=== PATIENT | male | born 1955 | race Caucasian/White ===

== ENCOUNTER 2016-12-01 18:50 | Emergency (ER) | payer BC ==
[2016-12-01 19:38] LABS: BASOPHILS 2.3 % (0-2); EOSINOPHILS 0 % (0-7); HEMATOCRIT 50.4 % (42.0-54.0); HEMOGLOBIN 17.8 g/dL (13.5-17.5); IMMATURE GRANULOCYTES 0.3 % (0-5); LYMPHOCYTES 16.4 % (15-50); MCH 33.9 pg (26.0-34.0); MCHC 35.3 g/dL (31.0-37.0); MEAN PLATELET VOLUME 10.5 fL (7.4-10.4); MONOCYTES 9.6 % (2-11); NEUTROPHILS 71.4 % (40-80); PLATELET COUNT 80 10x3/uL (130-400); RBC 5.25 10x6/uL (4.20-6.10); RDW 12.9 % (11.5-14.5); WBC 3.5 10x3/uL (4.8-10.8)
[2016-12-01 19:46] LABS: APPEARANCE CLEAR (CLEAR); BILIRUBIN NEGATIVE (NEGATIVE); COLOR YELLOW (YELLOW); GLUCOSE NEGATIVE (NEGATIVE); KETONE SMALL mg/dL (NEGATIVE); LEUKOCYTE ESTERASE TRACE (NEGATIVE); NITRITE NEGATIVE (NEGATIVE); PROTEIN 1+ mg/dL (NEGATIVE); SPECIFIC GRAVITY 1.015 (1.005-1.020); UROBILINOGEN NORMAL (NORMAL)
[2016-12-01 19:55] LABS: ALBUMIN 3.2 g/dL (3.4-5.0); BILIRUBIN - TOTAL 0.68 mg/dL (0.2-1.3); CALCIUM 7.8 mg/dL (8.5-10.1); CARBON DIOXIDE 25.7 mmol/L (21.0-32.0); CREATININE - SERUM 1.1 mg/dL (0.6-1.3); POTASSIUM - SERUM 3.7 mmol/L (3.5-5.1); PROTEIN - SERUM 6.8 g/dL (6.4-8.2)
[2016-12-01 19:55] LABS: BACTERIA FEW /hpf (NONE SEEN); EPITHELIAL CELLS 0-5 /hpf (0-5); MUCUS >1+ /lpf (NONE SEEN); RED CELLS - URINE 0-5 /hpf (0-5); WHITE CELLS - URINE 0-5 /hpf (0-5)
[2016-12-01 20:06] LABS: PLATELET ESTIMATE DECREASED
== END 2016-12-01 21:42 | disposition home or self-care (01) ==
LOC: D.ER 18:50
PROVIDERS: Physician Assistant Medical
DX: R53.1 Weakness (principal); A93.8 Other specified arthropod-borne viral fevers; I10 Essential (primary) hypertension; F32.9 Major depressive disorder, single episode, unspecified

== ENCOUNTER → 2019-01-09 09:42 | Outpatient (CLI) | payer BC | END | disposition home or self-care (01) | LOC: D.HCCARDIO 09:42 | PROVIDERS: ATTEND Internal Medicine Cardiovascular Disease | DX: I20.9 Angina pectoris, unspecified (principal) ==

== ENCOUNTER 2019-01-22 11:06 | Outpatient (CLI) | payer BC ==
[~2019-01-22] VITALS: Ht 177.8 cm; Wt 136.4 kg
--- NOTE | ~2019-01-22 | HEMODYNAMI ---
PATIENT:RACHEL LAKHANI MEDICAL RECORD: [id number] : 59 LOCATION:[facility] ADMISSION DATE: 01/22/19 Generatedon:01/22/201915:07 Patient name: RACHEL LAKHANI Patient #: [id number] SSN: [id number] : 1955 Date of study: 01/22/2019 Page: Of Hemodynamic Procedure Report Patient Data Patient Demographics Procedure consent was obtained First Name: RACHEL Gender: Male Last Name: KAR : 1955 Middle Initial: R Age: 63 year(s) Patient #: [id number] Race: SSN: [id number] Additional ID: [id number] Contact details [facility] State: [place] City: [place] Zip code: [address] Past Medical History Performed procedures and imaging results Date Procedure Procedure Results Comments Echocardiography Stress testing Positive->Intermediate with SPECT MPI risk Allergies Allergen Reaction Date Comments Reported Other allergy 01/22/2019 [facility] Admission Admission Data Admission Date: 01/22/2019 Admission Time: 11:06 Height (in.): 70 BSA: 2.48 (m2) Height (cm.): 177.8 BMI: 43.02 (kg/m2) Weight (lbs.): 299.83 Weight (kg.): 136 Medications upon Admission Medications Dosage Times Administered Last Remarks per Delivery Day Date and Time Aspirin 81 mg 1 (any) GABRIELLA 20 mg Inhibitor (any) ARB (any) 12.5 mg Lab Results Lab Result Date: 01/22/2019 Lab Result Time: 0:00 Biochemistry Name Units Result Min Max BUN mg/dl 20 --(----)*- 7 18 Creatinine mg/dl 1.1 --(--*-)-- 0.6 1.3 eGFR ml/min 72 *-(----)-- 90 120 NONAFRICAN CBC Name Units Result Min Max Hematocrit % 51.1 --(---*)-- 42 54 Hemoglobin g/dl 17.8 --(----)*- 13.5 17.5 Procedure Procedure Types Cath Procedure Diagnostic Procedure [facility] w/Coronaries Sedation Charges Moderate Sedation up to 15 minutes Procedure Description Procedure Date Procedure Date: 01/22/2019 Procedure Start Time: 14:37 Procedure End Time: 15:04 Procedure Staff Name Function Ray Carter MD Performing Physician Jeniffer Rosales RT Monitor Dwain Forrest RT Scrub Tianna Licea RT Scrub Milton Barkley RN Nurse Davy Rangel RN Nurse Indication Angina Shortness of breath Procedure Data Cath Procedure Fluoroscopy Diagnostic fluoroscopy Total fluoroscopy Time: 10 time: 10 min min Diagnostic fluoroscopy Total fluoroscopy dose: dose: 1346 mGy 1346 mGy Contrast Material Contrast Material Type Amount (ml) Isovue 300 136 Entry Location Entry Primary Successful Side Size Upsize Upsize Entry Closure Schroeder ccessful Closure Location (Fr) 1 (Fr) 2 (Fr) Remarks Device Remarks Radial Right 5 Fr Mechanical artery Compression Estimated blood loss: 10 ml Diagnostic catheters Device Type Used For End Catheter Placement DIAGNOSTIC Niranjan 110cm Procedure 5Fr catheter ([id number]) DIAGNOSTIC AR MOD 5Fr Procedure Catheter ([id number]) DIAGNOSTIC Bowie 110cm 5 Procedure Fr catheter (028187) DIAGNOSTIC AL1 5Fr Procedure catheter ([id number]) DIAGNOSTIC Pigtail 5Fr Procedure catheter ([id number]) Procedure Complications No complications Procedure Medications Medication Administration Route Dosage 0.9% NaCl I.V. 100 ml/hr Oxygen etCO2 Nasal cannula 2 l/min Heparin Flush Bag added to field 2 bags (1000units/500ml NS) Lidocaine 2% added to field 20 Radial Cocktail added to field 1 syringe (Verapamil 2mg/Nitro 400mcg/Heparin 1500units) Versed I.V. 2 mg Fentanyl I.V. 100 mcg Versed I.V. 1 mg Radial Cocktail I.A. 1 syringe (Verapamil 2mg/Nitro 400mcg/Heparin 1500units) Hemodynamics Rest BSA: 2.48 (m2) HGB: 17.8 (g/dl) O2 Consumption: Estimated: 277.29 (ml/min) O2 Co nsumption indexed: Estimated:111.81 (ml/min/m) Heart Rate: 55 (bpm) Pressure Samples Time Site Value (mmHg) Purpose Heart Use Rate(bpm) 14:45 LV 146/1,18 Snapshot 61 Gradients Valve Time Site Site Mean SEP/DFP Peak To Heart Use 1 2 (mmHg) (sec/min) Peak Rate (mmHg) (bpm) Aortic 14:45 LV AO 60 Snapshots Pre Cath Intra NCS Post Cath Vital Signs Time Heart Resp SPO2 etCO2 NIBP Rhythm Pain Sedation Rate (ipm) (%) (mmHg) (mmHg) Status Level (bpm) 14:25:28 54 19 93 44.1 125/76(91) NSR 0 (11) 10(A) , No pain 14:29:42 54 13 93 38.2 119/63(83) NSR 0 (11) 10(A) , No pain 14:33:52 56 11 92 14.9 120/71(87) NSR 0 (11) 10(A) , No pain 14:38:08 57 15 93 48.6 118/64(84) NSR 0 (11) 10(A) , No pain 14:42:24 58 13 92 21.7 118/66(85) NSR 0 (11) 10(A) , No pain 14:46:40 57 13 94 41.1 116/63(80) NSR 0 (11) 9(A) , No pain 14:50:56 66 15 94 38.1 113/63(87) NSR 0 (11) 9(A) , No pain 14:55:12 58 16 92 45.6 119/61(81) NSR 0 (11) 10(A) , No pain 14:59:26 58 16 92 38.1 115/67(85) NSR 0 (11) 10(A) , No pain 15:03:42 54 19 93 39.7 114/65(84) NSR 0 (11) 10(A) , No pain Medications Time Medication Route Dose Verified Delivered Reason Notes Effectiveness by by 14:25:15 0.9% NaCl I.V. 100 Davy Davy Per ml/hr Claire Rangel physician RN RN 14:25:24 Oxygen etCO2 2 l/min Davy Davy for low 02 Nasal Claire Rangel sats cannula RN RN 14:25:34 Heparin Flush added 2 bags Davy Davy used for Bag to Claire Rangel procedure (1000units/500ml field RN RN NS) 14:25:45 Lidocaine 2% added 20ml Davy Davy for local to vial Lorigan Claire anesthetic field RN RN 14:26:00 Radial Cocktail added 1 Davy Davy used for (Verapamil to syringe Lorigan Lorigan procedure 2mg/Nitro RN RN 400mcg/Heparin 1500units) 14:34:07 Versed I.V. 2 mg Davy Davy for sedation Claire Rangel RN RN 14:34:15 Fentanyl I.V. 100 mcg Davy Davy for sedation Claire Rangel RN RN 14:38:25 Versed I.V. 1 mg Davy Davy for sedation Claire Rangel RN RN 14:42:25 Radial Cocktail I.A. 1 Davy Ray for (Verapamil syringe Claire Carter MD vasodilation 2mg/Nitro RN 400mcg/Heparin 1500units) Procedure Log Time Note 14:01:44 Time tracking: Regular hours (M-F 7:00 - 5:00) 14:01:48 Plan of Care:Hemodynamics will remain stable., Cardiac rhythm will remain stable., Comfort level will be maintained., Respiratory function will remain adequate., Patient/ family verbilizes understanding of procedure., Procedure tolerated without complication., Recovers from procedure without complications.. 14:01:51 Procedure Status Elective Heart Cath (OP). 14:01:53 Signed procedure consent form obtained from patient. 14:01:57 Davy Rangel RN sent for patient. Start room use. 14:12:39 Diagnostic Cath Status : Elective 14:12:40 PCI Cath Status : Elective 14:12:48 Indication : Angina 14:13:01 Indication : Shortness of breath 14:14:01 Patient Weight : 299.83 lbs 14:14:14 Patient Height : 70 inches 14:24:22 Patient received from Pre/Post Procedure Room to CCL 1 Alert and oriented. Tansferred to table in Supine position. 14:24:23 Warm blankets applied, and richard hugger turned on for patient comfort. 14:24:24 Correct patient and procedure confirmed by team. 14:24:25 ECG and BP/O2 sat monitors applied to patient. 14:24:26 Vital chart was started 14:24:27 Baseline sample Acquired. 14:24:30 Rhythm: sinus bradycardia 14:24:33 Full Disclosure recording started 14:24:41 H&P Date Dictated: 01/15/2019 Within 30 days and on chart., H&P Addendum completed by physician on day of procedure. (MUST COMPLETE FOR ALL OUTPATIENTS). 14:24:42 Pre-procedure instructions explained to patient. 14::43 Pre-procedure instructions explained to patient. 14:24:44 Family in patients room. 14:24:45 Patient NPO since Midnight. 14:24:57 Patient allergic to Other allergySUDAFEDS 14:25:00 Is patient on blood thinner?No 14:25:03 Patient diabetic? No. 14:25:06 Previous problem with sedation/anesthesia? No ? 14:25:07 Snore? Yes 14:25:08 Sleep apnea? Yes 14:25:09 Deviated septum? No 14:25:10 Opens mouth fully? Yes 14:25:12 Sticks out tongue? Yes 14:25:15 0.9% NaCl 100 ml/hr I.V. was administered by Davy Rangel RN; Per physician; 14:25:20 Airway obstruction? No ? 14:25:24 Oxygen 2 l/min etCO2 Nasal cannula was administered by Davy Rangel RN; for low 02 sats; 14:25:24 Dentures? No ? 14:25:32 Modified Shivam's test Ulnar < 7 seconds 14:25:34 Heparin Flush Bag (1000units/500ml NS) 2 bags added to field was administered by Davy Rangel RN; used for procedure; 14:25:34 Patient pain scale 0/10 ?. 14:25:41 IV patent on arrival in left hand with 0.9% NaCl at [facility]. 14:25:45 Lidocaine 2% 20ml vial added to field was administered by Davy Rangel RN; for local anesthetic; 14:26:00 Radial Cocktail (Verapamil 2mg/Nitro 400mcg/Heparin 1500units) 1 syringe added to field was administered by Davy Rangel RN; used for procedure; 14::51 Lab Result : BUN 20 mg/dl 14::51 Lab Result : eGFR NONAFRICAN 72 ml/min 14::51 Lab Result : Creatinine 1.1 mg/dl 14::51 Lab Result : Hemoglobin 17.8 g/dl 14::51 Lab Result : Hematocrit 51.1 % 14::54 Lab results completed and on chart. 14:28:58 Right Radial & Right Groin area was prepped with chlora-prep and draped in sterile fashion 14::59 Alarms reviewed by R. N. 14::59 Sharps counted by scrub and verified by R.N. 14:29:03 Use device set Radial Dx or PCI 14:29:04 ACIST Syringe (28246) opened to sterile field. 14:29:06 Bag Decanter (2002S) opened to sterile field. 14:29:07 ACIST Hand Control (23581) opened to sterile field. 14:29:07 ACIST Manifold (90212) opened to sterile field. 14:29:08 Tegaderm 4 x 4 (1626W) opened to sterile field. 14:29:10 Medline Cath Pack ([id number]) opened to sterile field. 14:29:11 MBrace Wrist Support ([id number]) opened to sterile field. 14:29:14 EMERALD Guide Wire (502-374) opened to sterile field. 14:29:15 SHEATH 6FR RAIN (4429448) opened to sterile field. 14:29:16 NEEDLE Cook 21G 4cm Radial ([id number]) opened to sterile field. 14:33:19 --------ALL STOP TIME OUT------ 14:33:20 Final Timeout: patient, procedure, and site verified with staff and physician. All members of the team are in agreement. 14:33:22 Right Radial & Right Groin site verified by team. 14:33:25 Fire Safety Assessment: A--An alcohol-based skin anteseptic being used preoperatively., C--Open oxygen or nitrous oxide is being used., D--An ESU, laser, or fiber-optic light is being used. 14:33:28 Physical assessment completed. ASA score P 2 - A patient with mild systemic disease as per Ray Carter MD. 14:33:43 2) 60-89 Mildly reduced kidney function, and other findings (as for stage 1) point to kidney disease. 14:33:57 Maximum allowable contrast dose (3.7 X eGFR X 0.75)216 ml. 14:34:01 Sedation plan: IV Moderate Sedation Medication:Versed, Fentanyl 14:34:07 Versed 2 mg I.V. was administered by Davy Lorigan RN; for sedation; 14:34:15 Fentanyl 100 mcg I.V. was administered by Davy Rangel RN; for sedation; 14:37:30 Procedure started. 14:37:39 Local anesthetic to right radial artery with Lidocaine 2% by Ray Carter MD.INITIAL ACCESS ONLY 14:38:25 Versed 1 mg I.V. was administered by Davy Rangel RN; for sedation; 14:42:08 A 5 Fr sheath was inserted into the Right Radial artery 14:42:25 Radial Cocktail (Verapamil 2mg/Nitro 400mcg/Heparin 1500units) 1 syringe I.A. was administered by Ray Carter MD; for vasodilation; 14:43:27 A DIAGNOSTIC Niranjan 110cm 5Fr catheter (311284) was advanced over the wire and used for Procedure. 14:45:05 LV gram done using GRACIA 14:45:07 Injector settings: Ml/sec: 7, Volume: 15, 14:45:20 LV hemodynamics recorded. 14:45:31 EF : 60 % 14:47:03 LCA angiography performed. 14:48:43 Catheter exchanged over wire. 14:49:02 UNABLE TO ENGAGE RCA 14:49:37 A DIAGNOSTIC AR MOD 5Fr Catheter ([id number]) was advanced over the wire and used for Procedure. 14:51:26 Catheter exchanged over wire. 14:51:38 UNABLE TO ENGAGE RCA 14:52:06 A DIAGNOSTIC Bowie 110cm 5 Fr catheter (427142) was advanced over the wire and used for Procedure. 14:54:22 Catheter exchanged over wire. 14:54:31 UNABLE TO ENGAGE RCA 14:55:09 A DIAGNOSTIC AL1 5Fr catheter ([id number]) was advanced over the wire and used for Procedure. 14:56:50 Catheter exchanged over wire. 14:57:08 UNABLE TO ENGAGE RCA 14:58:28 A DIAGNOSTIC Pigtail 5Fr catheter ([id number]) was advanced over the wire and used for Procedure. 15:00:15 Aortic Root visualized 15:00:29 ACCDominant side:Left 15:00:45 Catheter removed. 15:00:48 TR BAND Large ([id number]) opened to sterile field. 15:00:54 Procedure ended.(Physican Out) 15:01:26 Sheath removed intact; hemostasis achieved with Mechanical Compression to the Right Radial artery. 15:01:30 Fluoroscopy time 10.00 minutes. 15:01:35 Fluoroscopy dose: 1346 mGy 15:01:35 Flurop Dose total: 1346 15:01:51 Dose Area Product 00200 mGy/cm. 15:01:55 Contrast amount:Isovue 300 136ml. 15:01:58 Maximum allowable dose exceeded? No. 15:01:59 Sharps counted by scrub and verified by R.N. 15:02:05 TR band inflated with 10cc of air. 15:02:11 Post-procedure physical assessment completed. ASA score P 2 - A patient with mild systemic disease as per Ray Carter MD. 15:02:14 Post procedure rhythm: sinus bradycardia 15:02:17 Estimated blood loss: 10 ml 15:02:28 Post procedure instruction explained to patient.Patient verbalizes understanding. 15:02:29 Patient needs reinforcement of post procedure teaching. 15:03:21 Procedure type changed to Cath procedure, Diagnostic procedure, LHC, LHC w/Coronaries, Sedation Charges, Moderate Sedation up to 15 minutes 15:03:43 Procedure and supply charges have been captured, reviewed, submitted and are correct. 15:03:46 Procedure Complication : No complications 15:03:56 Vital chart was stopped 15:03:56 See physician's report for complete and final results. 15:03:58 Report given to Pre/Post Procedure Room. 15:04:01 Patient transfered to Pre/Post Procedure Room with Bed. 15:04:04 Procedure ended. 15:04:04 Full Disclosure recording stopped 15:04:08 End room use (Document Last) Device Usage Item Name Manufacture Quantity Catalog Hospital Part Current [facility] l Lot# / Number Charge Number Stock Stock Serial# Code ACIST Acist 1 00049 123852 572537 570998 20 Syringe Medical (40745) Systems Inc Bag Microtek 1 203015 42607 423378 5 Decanter Medical Inc. () ACIST Hand Acist 1 95046 062365 347274 268039 5 Control Medical (35925) Systems Inc ACIST Acist 1 49336 179054 194795 161953 5 Manifold Medical (30890) Systems Inc Tegaderm 4 3M 1 1626W 791457 630122 431971 5 x 4 (1626W) Medline Medline 1 [id number] 355305 40942 862163 5 Cath Pack ([id number]) MBrace Advanced 1 140-0250-00 426208 21954 543613 5 Wrist Vascular Support Dynamics ([id number]) EMERALD Cardinal 1 502455 392794 495603 664501 5 Guide Wire Health (502455) SHEATH 6FR Cardinal 1 0350182 253414 0676437 913793 5 RAIN Health (9312170) NEEDLE Cook Cook Medical 1 [id number] 534228 029763 309567 5 21G 4cm Radial (V53424) DIAGNOSTIC Terumo 1 405023 538615 106489 998263 5 Niranjan 110cm 5Fr catheter (430936) DIAGNOSTIC Cardinal 1 [id number] 902892 399096 134167 15 AR MOD 5Fr Health Catheter (673556J) DIAGNOSTIC Terumo 1 405013 968474 594577 967456 5 Bowie 110cm 5 Fr catheter (791371) DIAGNOSTIC Cardinal 1 [id number] 460954 855412 639188 15 AL1 5Fr Health catheter (568279Y) DIAGNOSTIC Cardinal 1 930972E 903539 243867 185853 5 Pigtail 5Fr Health catheter (300958R) TR BAND Terumo 1 [id number] 339852 413092 329589 40 Large ([id number]) Signature Audit Baker Stage Time Signature Unsigned Intra-Procedure 01/22/2019 Jeniffer Rosales 3:07:16 PM RT(R) Signatures Performing Physician : Signature : Ray Carter MD Date : Time : Monitor : Jeniffer Rosales Signature : RT Date : Time : Nurse : Milton Barkley RN Signature : Date : Time : Nurse : Davy Lorigan Signature : RN Date : Time : [address] [place] [address]
[2019-01-22] MEDS ORDERED: ALEVE220 MG PO (11:26)
[2019-01-22] MEDS ORDERED: LISINOPRIL-HCT1 EAC8 PO (11:26)
[2019-01-22] MEDS ORDERED: ZOLOFT100 MG PO (11:27)
[2019-01-22] MEDS ORDERED: BAYER CHEWABLE81 MG PO (11:28)
[2019-01-22] MEDS ORDERED: LOSARTAN/HCT 100-12. PO (11:28)
[2019-01-22] MEDS ORDERED: NORVASC10 MG PO (11:29)
[2019-01-22 11:41] VITALS: BP 141/77; Ht 177.8 cm; Wt 136.4 kg
--- NOTE | 2019-01-22 11:50 | NUR ---
PEARL MAKER, MILTON MICHAEL RN, NOTIFIED OF POSITIVE SUICIDE RISK SCREENING AND NEED FOR FOR BEHAVIORAL HEALTH SCREENING REFERRAL PER PROTOCOL.
[2019-01-22 12:17] LABS: ANION GAP 12.1 mmol/L (8-16); CARBON DIOXIDE 28.4 mmol/L (21.0-32.0); CREATININE - SERUM 1.1 mg/dL (0.6-1.3); POTASSIUM - SERUM 4.5 mmol/L (3.5-5.1)
[2019-01-22 12:20] LABS: HEMATOCRIT 51.1 % (42.0-54.0); HEMOGLOBIN 17.8 g/dL (13.5-17.5); MCH 33.1 pg (26.0-34.0); MCHC 34.8 g/dL (31.0-37.0); MEAN PLATELET VOLUME 8.9 fL (7.4-10.4); NEUTROPHILS 57.7 % (40-80); RBC 5.38 10x6/uL (4.20-6.10); RDW 13.3 % (11.5-14.5); WBC 6.8 10x3/uL (4.8-10.8)
[2019-01-22 12:31] LABS: PLATELET COUNT 233 10x3/uL (130-400)
--- NOTE | 2019-01-22 12:33 | NUR ---
DR. SALCIDO NOTIFIED AND REVIEWED PT'S BEHAVIOR AND ASSESSMENT RESULTS. PT IS LOW RISK PER DR. SALCIDO. DR. SALCIDO STATED TO GIVE RESOURCES TO PT AT TIME OF DISCHARGE. NO FURTHER ORDERS AT THIS TIME. RESOURCES REVIEWED WITH PT AND HE VERBALIZED UNDERSTANDING.
--- NOTE | 2019-01-22 13:06 | NUR ---
BEHAVIORAL HEALTH SCREENING COMPLETE BY DANIEL QUINN.
--- NOTE | 2019-01-22 16:57 | NUR ---
1535 PT SLEEPING INTERMITTENTLY, AWAKENS EASILY. DENIES ANY C/O. TR BAND CDI, FINGERS WARM, CAP REFILL IS BRISK. VSS, CALL LIGHT IN REACH. 1610 PT ALERT, DENIES ANY C/O. TR BAND IS CDI, FINGERS WARM AND CAP REFILL IS BRISK. PT DENIES NEEDS AT THIS TIME. REFUSES SANDWICH AND PO FLUIDS, STATES WANTS TO GO OUT WITH A FRIEND AFTER DC TO EAT. 1620 4 CC OF AIR WEANED FROM TR BAND WITH NO BLEEDING NOTED. 1635 4 CC OF AIR WEANED FROM TR BAND WITH NO BLEEDING NOTED. PT ALERT AND DENIES ANY C/O. 1657 ALL REMAINING AIR WEANED FROM TR BAND WITH NO BLEEDING NOTED. FINGERS WARM, PULSES PALPABLE. FRIEND AT BEDSIDE.
--- NOTE | 2019-01-22 17:21 | NUR ---
DC INSTRUCTIONS REVIEWED WITH PT AND FRIEND WHO VERBALIZE UNDERSTANDING. IV DC'D WITH CATH INTACT AND PT IS DRESSING FOR DC TO HOME.
--- NOTE | 2019-01-22 17:40 | NUR ---
1735 2X2 AND TEGADERM REMAIN CDI TO RIGHT WRIST. WRIST IMMOBILIZER IN PLACE. PT IS ALERT AND DENIES ANY C/O. PT HAS AMBULTED TO THE BATHROOM AND VOIDED QS. HAS ALL PERSONAL BELONGINGS AND DC INSTRUCTIONS. PT ESCORTED TO PRIVATE AUTO VIA WC BY NURSE WITH FRINED DRIVING HIM HOME.
== END 2019-01-22 17:35 | disposition home or self-care (01) ==
LOC: D.CATH 11:06
PROVIDERS: ATTEND Internal Medicine Cardiovascular Disease
DX: R07.89 Other chest pain (principal); Z01.812 Encounter for preprocedural laboratory examination

== ENCOUNTER → 2020-09-10 09:35 | Outpatient (CLI) | payer BC ==
[2019-01-22 11:41] VITALS: BMI 43.1
[~2020-09-10 09:35] MED LIST: ALEVE220 MG PO; BAYER CHEWABLE81 MG PO; LISINOPRIL-HCT1 EAC8 PO; LOSARTAN/HCT 100-12. PO; NORVASC10 MG PO; ZOLOFT100 MG PO
[2020-09-10 10:24] LABS: BASOPHILS 0.3 % (0-2); EOSINOPHILS 0.7 % (0-7); HEMATOCRIT 55.2 % (42.0-54.0); HEMOGLOBIN 19.2 g/dL (13.5-17.5); IMMATURE GRANULOCYTES 0.3 % (0-5); LYMPHOCYTE ABS# 2.11 10x3/uL (1.32-3.57); LYMPHOCYTES 28.4 % (15-50); MCH 33.8 pg (26.0-34.0); MCHC 34.8 g/dL (31.0-37.0); MCV 97.2 fL (80.0-100.0); MEAN PLATELET VOLUME 9.2 fL (7.4-10.4); MONOCYTES 7.8 % (2-11); NEUTROPHIL ABS# 4.64 10x3/uL (1.78-5.38); NEUTROPHILS 62.5 % (40-80); RBC 5.68 10x6/uL (4.20-6.10); RDW 14.5 % (11.5-14.5); WBC 7.4 10x3/uL (4.8-10.8)
[2020-09-10 10:27] LABS: PLATELET COUNT 169 10x3/uL (130-400)
[2020-09-10 10:39] LABS: ALBUMIN 3.7 g/dL (3.4-5.0); ALKALINE PHOSPHATASE 75 U/L (30-120); ALT (SGPT) 32 U/L (10-68); BILIRUBIN - TOTAL 0.91 mg/dL (0.2-1.3); CALC OSMOLALITY 269 mosm/kg (275-300); CALCIUM 9.6 mg/dL (8.5-10.1); CARBON DIOXIDE 32.2 mmol/L (21.0-32.0); CHLORIDE - SERUM 96 mmol/L (98-107); CHOL - HDL RATIO 3.1 ratio (2.3-4.9); CHOLESTEROL, TOTAL 202 mg/dL (0-200); GLUCOSE 115 mg/dL (74-106); HDL CHOLESTEROL 66 mg/dL (32-96); LDL CHOLESTEROL 95 mg/dL (0-100); LDL-HDL RATIO 1.4 ratio (1.5-3.5); PROTEIN - SERUM 8.6 g/dL (6.4-8.2); SODIUM 135 mmol/L (136-145); THYROID STIMULATING HORMONE 1.17 uIU/mL (0.36-3.74); TRIGLYCERIDE 209 mg/dL (30-200); UREA NITROGEN 11 mg/dL (7-18); eGFR NON AFRICAN AMERICAN 80 mL/min (90-120)
[2020-09-11 07:16] LABS: RAPID PLASMA REAGIN Non Reactive (Non Reactive)
[2020-09-12 19:08] LABS: CHLAMYDIA TRACHOMATIS, NAA Negative (Negative)
== END | disposition home or self-care (01) ==
LOC: D.LAB 09:35
PROVIDERS: ATTEND Family Medicine
DX: E11.9 Type 2 diabetes mellitus without complications (principal); R63.4 Abnormal weight loss; I10 Essential (primary) hypertension; Z20.9 Contact with and (suspected) exposure to unspecified communicable disease; R53.83 Other fatigue

== ENCOUNTER 2020-10-25 16:02 | Inpatient (IN) | payer BC ==
[~2020-10-25] VITALS: Ht 177.8 cm; Wt 108.7 kg
[2020-10-25] VITALS (14 sets, daily range): BP systolic 111–207; BP diastolic 65–116; BMI 36.9
--- NOTE | 2020-10-25 16:19 | NUR ---
DR HOBBS NOTIFIED OF PATIENT AND INABILITY TO GET NEEDS STATED BY PATIENT, BUT THAT HE IS IN NOT DISTRESS.
--- NOTE | 2020-10-25 16:34 | NUR ---
PATIENT STATES "YA KNOW I JUST FEEL LIKE I AM DYING AND ID RATHER DO IT HERE THAN AT HOME". PATIENT SPEAKING REPEATEDLY ABOUT REGRETS IN LIFE, HOW HE FEELS HE IS UGLY, HE HATES HIS LIFE. PATIENT REPEATEDLY SPEAKING THAT HE WANTS TO , HE IS DYING, DESPAIR WITH HOW HIS LIFE HAS ENDED UP. DR HOBBS NOTIFIED. NOTIFIED THAT URINE IS BEING SENT TO LAB. VERBAL ORDER FOR PSYCH WORK UP.
--- NOTE | 2020-10-25 16:36 | NUR ---
PATIENT ASSISTED TO BATHROOM. URINE SPECIMEN CUP GIVEN TO OBTAIN SAMPLE.
--- NOTE | 2020-10-25 16:37 | NUR ---
URINE SAMPLE OBTAINED. PATIENT STATES "IM GLAD YOURE TAKING THIS I AM HAVING ISSUES WITH MY URINE". PATIENT NOT SPECIFIC TO WHAT ISSUES ARE WITH URINE.
--- NOTE | 2020-10-25 16:40 | NUR ---
PATIENT REQUESTING ICE WATER
--- NOTE | 2020-10-25 16:41 | NUR ---
PATIENT REQUESTING PILLOW
--- NOTE | 2020-10-25 16:44 | NUR ---
PATIENT STATES THAT HE HAS HOME MEDICATIONS FOR BP, DEPRESSION, AND OTHER MEDICAL ISSUES BUT REFUSES TO TAKE ANY OF THEM.
[2020-10-25 17:00] LABS: BASOPHILS 0.5 % (0-2); EOSINOPHILS 0.3 % (0-7); HEMATOCRIT 51.8 % (42.0-54.0); HEMOGLOBIN 18.1 g/dL (13.5-17.5); IMMATURE GRANULOCYTES 0.2 % (0-5); LYMPHOCYTE ABS# 2.26 10x3/uL (1.32-3.57); LYMPHOCYTES 38.4 % (15-50); MCH 33.8 pg (26.0-34.0); MCHC 34.9 g/dL (31.0-37.0); MCV 96.8 fL (80.0-100.0); MEAN PLATELET VOLUME 8.8 fL (7.4-10.4); MONOCYTES 5.8 % (2-11); NEUTROPHIL ABS# 3.23 10x3/uL (1.78-5.38); NEUTROPHILS 54.8 % (40-80); PLATELET COUNT 179 10x3/uL (130-400); RBC 5.35 10x6/uL (4.20-6.10); RDW 14.6 % (11.5-14.5); WBC 5.9 10x3/uL (4.8-10.8)
[2020-10-25 17:10] LABS: CALC OSMOLALITY 277 mosm/kg (275-300); CARBON DIOXIDE 24.9 mmol/L (21.0-32.0); CHLORIDE - SERUM 100 mmol/L (98-107); CREATININE - SERUM 0.9 mg/dL (0.6-1.3); GLUCOSE 90 mg/dL (74-106); POTASSIUM - SERUM 4.1 mmol/L (3.5-5.1); SODIUM 139 mmol/L (136-145); UREA NITROGEN 13 mg/dL (7-18); eGFR NON AFRICAN AMERICAN > 90 mL/min (90-120)
[2020-10-25 17:15] LABS: ALBUMIN 4.1 g/dL (3.4-5.0); ALKALINE PHOSPHATASE 65 U/L (30-120); ALT (SGPT) 60 U/L (10-68); MAGNESIUM - SERUM 1.9 mg/dL (1.8-2.4); PROTEIN - SERUM 8.5 g/dL (6.4-8.2)
[2020-10-25 17:19] LABS: BILIRUBIN NEGATIVE (NEGATIVE); KETONE NEGATIVE (NEGATIVE); NITRITE NEGATIVE (NEGATIVE); UROBILINOGEN NORMAL mg/dL (< 2)
[2020-10-25 17:20] LABS: WHITE CELLS - URINE OCC HPF (0-1)
[2020-10-25 17:22] LABS: UDS - AMPHET NEGATIVE QUAL (NEGATIVE); UDS - BARB NEGATIVE QUAL (NEGATIVE); UDS - BENZO NEGATIVE QUAL (NEGATIVE); UDS - COCAINE NEGATIVE QUAL (NEGATIVE); UDS - OPIATE NEGATIVE QUAL (NEGATIVE); UDS - PCP NEGATIVE QUAL (NEGATIVE); UDS - THC NEGATIVE QUAL (NEGATIVE)
--- NOTE | 2020-10-25 17:39 | NUR ---
ENTERED PATIENT ROOM TO DISCUSS FINDING TRANSPORT HOME, PATIENT CURRENTLY USING BATHROOM.
--- NOTE | 2020-10-25 17:42 | NUR ---
PATIENT IN [facility], STATES "I GUESS IM FINE, IM JUST DRUNK". NOTIFIED PATIENT OF LAB RESULTS. PATIENT STATES "WELL AT LEAST IM NOT DYING".
--- NOTE | 2020-10-25 17:55 | NUR ---
EKG PERFORMED AND TAKEN DIRECTLY TO DR HOBBS. DR HOBBS TO PATIENT BEDSIDE.
--- NOTE | 2020-10-25 18:06 | NUR ---
PATIENT EDUCATED ON CARE PLAN AND PURPOSE OF MEDICATIONS BEING GIVEN.
--- NOTE | 2020-10-25 18:07 | NUR ---
PATIENT STATES THAT HE IS AN EVERYDAY DRINKER, CONSUMES LIQUOR DAILY, BUT HAS NOT DRANK TODAY.
[2020-10-25 18:19] LABS: APTT 32.5 SECONDS (22.8-39.4); INR 1.08 (0.85-1.17)
[2020-10-25 18:38] LABS: CKMB 8.3 U/L (0.0-3.6); CREATINE KINASE 666 UL (21-232)
--- NOTE | 2020-10-25 19:58 | NUR ---
PT HEART RATE WENT UP TO 180S, WENT TO CHECK ON PT,PT STATES HE FELT LIKE HIS HEART WAS RACING, WENT BACK TO CHECK MONITOR, PT HAVING RUNS OF VTACH, ER DOCTOR NOTIFIED - GAVE AMIO BOLUS AND STARTED DRIP
[2020-10-25] MEDS ORDERED: TRAZODONE HCL300 MG (21:31)
--- NOTE | 2020-10-25 22:37 | NUR ---
EKG DONE ORDERED AND ON CHART
[2020-10-26] VITALS (24 sets, daily range): BP systolic 14–184; BP diastolic 70–125; Ht 177.8 cm; Wt 108.7 kg
--- NOTE | 2020-10-26 00:14 | NUR ---
LAB HERE FOR CARDIAC ENZYME LAB DRAW
[2020-10-26 01:02] LABS: CKMB 7.6 U/L (0.0-3.6); CREATINE KINASE 678 UL (21-232); TROPONIN-I 0.053 ng/mL (0.000-0.060)
--- NOTE | 2020-10-26 03:51 | NUR ---
PT WANTS SCDS OFF. STATES THEY ARE TOO HOT. UP TO BS COMMODE FOR BM. APRIL. ASSISTED. BATH GIVEN WHILE SITTING UP AND RETURNED TO BED WITH ASSISTANCE
--- NOTE | 2020-10-26 04:50 | NUR ---
LAB OBTAINED PER TECH. EKG DONE ORDERED. PT STILL LITTLE SHAKY AND HAS SOME ARTIFACT ON EKG.
[2020-10-26 06:08] LABS: BASOPHILS 0.3 % (0-2); EOSINOPHILS 0 % (0-7); HEMATOCRIT 46.8 % (42.0-54.0); HEMOGLOBIN 16.3 g/dL (13.5-17.5); IMMATURE GRANULOCYTES 0.1 % (0-5); LYMPHOCYTE ABS# 1.69 10x3/uL (1.32-3.57); LYMPHOCYTES 24.2 % (15-50); MCH 33.7 pg (26.0-34.0); MCHC 34.8 g/dL (31.0-37.0); MCV 96.7 fL (80.0-100.0); MEAN PLATELET VOLUME 9.5 fL (7.4-10.4); NEUTROPHILS 64.4 % (40-80); PLATELET COUNT 160 10x3/uL (130-400); RBC 4.84 10x6/uL (4.20-6.10); RDW 14.7 % (11.5-14.5)
[2020-10-26 06:32] LABS: ALBUMIN 3.3 g/dL (3.4-5.0); ALKALINE PHOSPHATASE 52 U/L (30-120); ALT (SGPT) 50 U/L (10-68); BILIRUBIN - TOTAL 0.84 mg/dL (0.2-1.3); CALC OSMOLALITY 277 mosm/kg (275-300); CALCIUM 8.2 mg/dL (8.5-10.1); CARBON DIOXIDE 26.3 mmol/L (21.0-32.0); CHLORIDE - SERUM 101 mmol/L (98-107); CHOL - HDL RATIO 2.3 ratio (2.3-4.9); CHOLESTEROL, TOTAL 200 mg/dL (0-200); CKMB 8.2 U/L (0.0-3.6); CREATINE KINASE 781 UL (21-232); CREATININE - SERUM 0.8 mg/dL (0.6-1.3); GLUCOSE 99 mg/dL (74-106); HDL CHOLESTEROL 87 mg/dL (32-96); LDL CHOLESTEROL 92 mg/dL (0-100); LDL-HDL RATIO 1.1 ratio (1.5-3.5); MAGNESIUM - SERUM 2.3 mg/dL (1.8-2.4); PHOSPHOROUS 2.6 mg/dL (2.5-4.9); POTASSIUM - SERUM 4.2 mmol/L (3.5-5.1); PROTEIN - SERUM 6.8 g/dL (6.4-8.2); SODIUM 139 mmol/L (136-145); THYROID STIMULATING HORMONE 1.62 uIU/mL (0.36-3.74); TRIGLYCERIDE 105 mg/dL (30-200); UREA NITROGEN 12 mg/dL (7-18); eGFR NON AFRICAN AMERICAN > 90 mL/min (90-120)
[2020-10-26 06:38] LABS: TROPONIN-I 0.058 ng/mL (0.000-0.060)
[2020-10-26 11:31] LABS: CKMB 8.6 U/L (0.0-3.6); TROPONIN-I 0.056 ng/mL (0.000-0.060)
[2020-10-26 11:32] LABS: CREATINE KINASE 806 UL (21-232)
[2020-10-27] VITALS (18 sets, daily range): BP systolic 114–163; BP diastolic 63–129
--- NOTE | 2020-10-27 01:03 | NUR ---
PT NEEDING LESS REMINDERS AT THIS POINT AND LESS SHAKY. MORE STEADY WHEN STANDS UP AT BS TO USE URINAL. REMAIN AT BS TO ASSIST IN AND OUT OF BED WITH LINES AND MONITORING EQUIPMENT. RETURNS TO BED AND TO SLEEP. VSS. WILL CONT TO MONITOR.
[2020-10-27 05:15] LABS: BASOPHILS 0.2 % (0-2); EOSINOPHILS 0.6 % (0-7); HEMATOCRIT 48.7 % (42.0-54.0); HEMOGLOBIN 16.8 g/dL (13.5-17.5); LYMPHOCYTE ABS# 1.56 10x3/uL (1.32-3.57); LYMPHOCYTES 32.9 % (15-50); MCH 33.6 pg (26.0-34.0); MCHC 34.5 g/dL (31.0-37.0); MCV 97.4 fL (80.0-100.0); MEAN PLATELET VOLUME 9.5 fL (7.4-10.4); MONOCYTES 10.8 % (2-11); NEUTROPHIL ABS# 2.63 10x3/uL (1.78-5.38); NEUTROPHILS 55.5 % (40-80); PLATELET COUNT 151 10x3/uL (130-400); RDW 14.5 % (11.5-14.5)
[2020-10-27 05:20] LABS: WBC 4.7 10x3/uL (4.8-10.8)
[2020-10-27 05:49] LABS: CALC OSMOLALITY 277 mosm/kg (275-300); CALCIUM 8.2 mg/dL (8.5-10.1); CHLORIDE - SERUM 101 mmol/L (98-107); CREATININE - SERUM 0.8 mg/dL (0.6-1.3); GLUCOSE 94 mg/dL (74-106); MAGNESIUM - SERUM 2.4 mg/dL (1.8-2.4); PHOSPHOROUS 2.8 mg/dL (2.5-4.9); SODIUM 139 mmol/L (136-145); UREA NITROGEN 12 mg/dL (7-18); eGFR NON AFRICAN AMERICAN > 90 mL/min (90-120)
[2020-10-27 05:54] LABS: POTASSIUM - SERUM 3.5 mmol/L (3.5-5.1)
[2020-10-28] VITALS (14 sets, daily range): BP systolic 128–157; BP diastolic 69–92
[2020-10-28 04:54] LABS: BASOPHILS 0.4 % (0-2); CALC OSMOLALITY 277 mosm/kg (275-300); CALCIUM 7.8 mg/dL (8.5-10.1); CARBON DIOXIDE 28.6 mmol/L (21.0-32.0); CHLORIDE - SERUM 104 mmol/L (98-107); CREATININE - SERUM 0.8 mg/dL (0.6-1.3); EOSINOPHILS 0.8 % (0-7); GLUCOSE 88 mg/dL (74-106); HEMATOCRIT 45.2 % (42.0-54.0); HEMOGLOBIN 15.4 g/dL (13.5-17.5); IMMATURE GRANULOCYTES 0.2 % (0-5); LYMPHOCYTE ABS# 1.78 10x3/uL (1.32-3.57); LYMPHOCYTES 36.8 % (15-50); MAGNESIUM - SERUM 2.4 mg/dL (1.8-2.4); MCH 33.7 pg (26.0-34.0); MCHC 34.1 g/dL (31.0-37.0); MCV 98.9 fL (80.0-100.0); NEUTROPHIL ABS# 2.46 10x3/uL (1.78-5.38); NEUTROPHILS 50.8 % (40-80); PLATELET COUNT 144 10x3/uL (130-400); POTASSIUM - SERUM 3.8 mmol/L (3.5-5.1); RBC 4.57 10x6/uL (4.20-6.10); RDW 14.3 % (11.5-14.5); SODIUM 140 mmol/L (136-145); UREA NITROGEN 13 mg/dL (7-18); WBC 4.8 10x3/uL (4.8-10.8); eGFR NON AFRICAN AMERICAN > 90 mL/min (90-120)
[2020-10-28 05:03] LABS: PHOSPHOROUS 3.6 mg/dL (2.5-4.9)
--- NOTE | 2020-10-28 13:27 | NUR ---
RCVED PT VIA WHEELCHAIR AND ICU STAFF. ALERT AND ORIENTED WITH NO S/S OF DISTRESS AT THIS TIME, PT DENIES ANY CURRENT NEEDS. CALL LIGHT IN HAND, BED LOW, WILL CONT TO MONITOR.
[2020-10-29 04:00] VITALS: BP 140/89
--- NOTE | 2020-10-29 04:02 | NUR ---
PT RESTING IN BED WITH EYES CLOSED. PT EXPRESS NO NEEDS AT THE MOMENT WILL CONT TO MONITOR.
[2020-10-29 06:19] LABS: BASOPHILS 0.2 % (0-2); EOSINOPHILS 1.5 % (0-7); HEMATOCRIT 44.9 % (42.0-54.0); HEMOGLOBIN 15.3 g/dL (13.5-17.5); IMMATURE GRANULOCYTES 0.2 % (0-5); LYMPHOCYTE ABS# 1.81 10x3/uL (1.32-3.57); MCH 33.6 pg (26.0-34.0); MCHC 34.1 g/dL (31.0-37.0); MCV 98.7 fL (80.0-100.0); MEAN PLATELET VOLUME 9.9 fL (7.4-10.4); MONOCYTES 10.3 % (2-11); NEUTROPHIL ABS# 2.73 10x3/uL (1.78-5.38); NEUTROPHILS 52.8 % (40-80); PLATELET COUNT 120 10x3/uL (130-400); RBC 4.55 10x6/uL (4.20-6.10); RDW 13.8 % (11.5-14.5); WBC 5.2 10x3/uL (4.8-10.8)
[2020-10-29 06:49] LABS: CALC OSMOLALITY 281 mosm/kg (275-300); CALCIUM 8.4 mg/dL (8.5-10.1); CARBON DIOXIDE 30.3 mmol/L (21.0-32.0); CHLORIDE - SERUM 104 mmol/L (98-107); CREATININE - SERUM 0.9 mg/dL (0.6-1.3); GLUCOSE 124 mg/dL (74-106); MAGNESIUM - SERUM 1.9 mg/dL (1.8-2.4); PHOSPHOROUS 4.4 mg/dL (2.5-4.9); POTASSIUM - SERUM 3.9 mmol/L (3.5-5.1); SODIUM 141 mmol/L (136-145); UREA NITROGEN 13 mg/dL (7-18); eGFR NON AFRICAN AMERICAN > 90 mL/min (90-120)
[2020-10-29 08:56] VITALS: BP 135/79
--- NOTE | 2020-10-29 09:00 | NUR ---
ALERT AND ORIENTED X4 AND ABLE TO DEMONSTRATED INCENTIVE SPIROMETRY. UP ADLIB WITH TELEMETRY INTACT. DENIES ANY CHEST PAIN OR DISCOMFORT. ENCOURAGED TO USE CALL LIGHT FOR ASSSIT.
[2020-10-29] MEDS ORDERED: METOPROLOL TART50 MG PO (12:30)
[2020-10-29] MEDS ORDERED: AMIODARONE HCL200 MG PO (12:30)
[2020-10-29 12:58] VITALS: BP 158/101
[2020-10-29] MEDS ORDERED: NICODERM CQ1 EAC3 TOPICAL (14:00)
--- NOTE | 2020-10-29 14:12 | MORECARE ---
CASE MANAGEMENT DISCHARGE SUMMARY PATIENT: RACHEL LAKHANI UNIT: [id number] ADM DATE: 10/25/20 AGE: 64 : 59 SEX: M ROOM/BED: D.2214 AUTHOR: RAMU,DOC PHYSICIAN: REFERRING PHYSICIAN: RAVEN POLANCO MD DATE OF SERVICE: 10/29/20 Case Management Discharge Planning Summary COMMENTS ENTERED DATE: 10/29/20 14:05 CT COMMENT TYPE: Discharge Planning REVIEWER: Danielle Ibarra CM met with patient to complete initial dc planning assessment. CM educated patient on the CM role and verbal consent given by patient to complete assessment. Patient lives at home where he states he is independent. At discharge patient plans to return home and feels this is a safe discharge. He works at [employer] [place] his friend will be his test driver home and will be moving in with him. CM discussed availability of home health, rehab services, and medical equipment. He has a cpap machine that he uses. Patient denied known discharge needs at this time. CM will continue to follow and will assist as needed with dc plans/needs. DCP REVIEW SUMMARY ANTICIPATED D/C DATE: EXPECTED LOS : CASE STATUS: DCP Initiated INITIAL REVIEW: 10/25/2020 INITIAL REVIEWER: Danielle Ibarra FINAL DISCHARGE DISPOSITION: 01 : Home or Self Care (Routine Discharge) FINAL REVIEWER: FINAL REVIEW DATE: DCP Focus Questions & Answers QUESTION: ANSWER : PATIENT: RACHEL LAKHANI ENCOUNTER: [id number] MEDICAL RECORD#: [id number] ADMISSION DATE: 10/25/2020 DISCHARGE DATE: ATTENDING MD: RAVEN KRAUS : AGE: 64 MARITAL STATUS: S DC PLAN ID: [id number] FACILITY: [facility] PRINTED ON: 10/29/20 14:11 CT All edits/amendments must be made on the electronic document DICTATION DATE: 10/29/201410 SPONSORSHIP COORDINATOR: EDUARD 10/29/201410 RPT#: [id number] DC DATE: STATUS: ADM IN [facility] [address] [place] [address] END OF REPORT
--- NOTE | 2020-10-29 14:40 | NUR ---
IV DISCONTINUED AND VERBALIZED UNDERSTANDING OF DISCHARGE INSTRUCTIONS. STABLE AT TIME OF DISCHARGE.
== END 2020-10-29 14:40 | disposition home or self-care (01) | DRG 305 ==
LOC: D.ER 16:02 → D.ICU 20:06 → D.MS 10-28 13:21
PROVIDERS: Family Medicine; ADMIT Emergency Medicine; ATTEND Emergency Medicine
DX: I16.0 Hypertensive urgency (principal); F10.231 Alcohol dependence with withdrawal delirium; I47.2 Ventricular tachycardia; M62.82 Rhabdomyolysis; I20.9 Angina pectoris, unspecified; I45.10 Unspecified right bundle-branch block; I10 Essential (primary) hypertension; F41.8 Other specified anxiety disorders; G47.33 Obstructive sleep apnea (adult) (pediatric); Y90.6 Blood alcohol level of 120-199 mg/100 ml; F17.200 Nicotine dependence, unspecified, uncomplicated